=== PATIENT | male | born 1985 | race Caucasian/White ===

== ENCOUNTER 2017-01-28 08:40 | Emergency (ER) | payer SELFPAY ==
--- NOTE | 2017-01-28 09:30 | ER Document Report ---
ED Medical Screen (RME) - General Stated Complaint: BLURRED EYE VISION Notes: onset: saturday. eye trauma of right eye legally blind in left eye cloudy in right eye, light sensitive, headache. I have greeted and performed a rapid initial assessment of this patient. A comprehensive ED assessment and evaluation of the patient, analysis of test results and completion of the medical decision making process will be conducted by additional ED providers. TRAVEL OUTSIDE OF THE [place] IN LAST 30 DAYS: No - Related Data Allergies/Adverse Reactions: No Known Allergies Allergy (Unverified 06/20/16 09:01) Past Medical History Psychiatric Medical History: Reports: Hx Anxiety, Hx Bipolar Disorder, Hx Depression Past Surgical History: Reports: Hx Orthopedic Surgery Physical Exam - Vital signs Vitals: Temp Pulse Resp BP Pulse Ox 97.9 F 88 16 163/82 H 97 01/28/17 08:55 01/28/17 08:55 01/28/17 08:55 01/28/17 08:55 01/28/17 08:55 Course - Vital Signs Vital signs: Temp Pulse Resp BP Pulse Ox 97.9 F 88 16 163/82 H 97 01/28/17 08:55 01/28/17 08:55 01/28/17 08:55 01/28/17 08:55 01/28/17 08:55
[2017-01-28] MEDS ORDERED: TETRACAINE HCL 0.5% OPH SOLN 2 ML OD ONE (11:04)
--- NOTE | 2017-01-28 11:56 | ER Document Report ---
ED Eye Complaint - General Chief Complaint: Blurred Vision Stated Complaint: BLURRED EYE VISION Information source: Patient Notes: 31-year-old male who is legally blind in the left eye with baseline poor vision in his right eye presents today after 2 days ago getting hit by the end of a bungee cord strep while moving at his place of occupation. Patient states he has had some increased irritation and blurry vision to the right eye. He states his tetanus is up-to-date. Patient states he is supposed to be wearing glasses but since they are "very thick" he finds them cumbersome. He does not wear contacts. TRAVEL OUTSIDE OF THE [place] IN LAST 30 DAYS: No - HPI Onset: Other - See above Eye location: Right Injury: Yes Occurred at: Work Quality of pain: Burning Severity: Mild Pain Level: 1 Exposure: Other - See above Safety glasses worn: No Contact lenses worn: No Associated symptoms: Other - See above - Related Data Allergies/Adverse Reactions: No Known Allergies Allergy (Verified 01/28/17 09:29) Past Medical History - Social History Smoking Status: Current Every Day Smoker Chew tobacco use (# tins/day): No Frequency of alcohol use: Occasional Drug Abuse: None Family History: Reviewed & Not Pertinent Patient has suicidal ideation: No Patient has homicidal ideation: No Renal/ Medical History: Denies: Hx Peritoneal Dialysis Psychiatric Medical History: Reports: Hx Anxiety, Hx Bipolar Disorder, Hx Depression Past Surgical History: Reports: Hx Orthopedic Surgery Physical Exam - Vital signs Vitals: Temp Pulse Resp BP Pulse Ox 97.9 F 88 16 163/82 H 97 01/28/17 08:55 01/28/17 08:55 01/28/17 08:55 01/28/17 08:55 01/28/17 08:55 Interpretation: Normal Notes: Reviewed vital signs and nursing note as charted by RN. CONSTITUTIONAL: Alert and oriented and responds appropriately to questions. Well -appearing; well-nourished HEAD: Normocephalic; atraumatic EYES: Right sclera and conjunctiva are injected. No obvious lacerations present. Full extraocular range of motion. Left pupil is 2 mm and reactive. The right pupil is around 3-4 mm and sluggishly reactive and slightly irregular. It does not appear to be obvious loss of fullness to the globe. No flow seen uptake. No obvious foreign body present. ENT: Normal nose; no rhinorrhea; moist mucous membranes; pharynx without lesions noted NEURO: CN II through XII are intact. PSYCH: The patient's mood and manner are appropriate. Grooming and personal hygiene are appropriate. - HEENT Visual acuity- Right eye: 20/40-1 Visual acuity- Both eyes: 20/40-1 Corrective lenses worn: No - legally blind in Left Eye Course - Re-evaluation Re-evalutation: 01/28/17 12:13 Given the initial history and physical examination I will order a CT of the orbits to evaluate for possible globe rupture, although I do believe that this is unlikely at this time. Patient is having no pain to his eye, no proptosis, and has full extraocular range of motion with no obvious flow seen uptake. If the CT of the orbit does not show an obvious globe rupture, I will perform Chaparro- Pen pressure examination and then consult ophthalmology. 01/28/17 13:21 CT scan showed no fractures or globe rupture. Chaparro-Pen pressure was 19. I called and spoke directly to the pulmonary function technician Dr. Burch. He believes the patient most likely has a traumatic iritis. I am in agreement. He states he will be able to see the patient in one hour. Patient will be discharged directly to his office across the street. - Vital Signs Vital signs: Temp Pulse Resp BP Pulse Ox 97.9 F 88 17 163/82 H 97 01/28/17 08:55 01/28/17 08:55 01/28/17 10:41 01/28/17 08:55 01/28/17 08:55 Discharge - Discharge Clinical Impression: Right eye trauma Qualifiers: Encounter type: initial encounter Qualified Code(s): S05.91XA - Unspecified injury of right eye and orbit, initial encounter Condition: Good Disposition: HOME, SELF-CARE Additional Instructions: Please go directly to Dr. Burch office as we have discussed. Referrals: WARD BURCH MD [ACTIVE STAFF] - Follow up as needed
[2017-01-28 13:39] VITALS: BP 160/78
== END 2017-01-28 13:33 | disposition home or self-care (01) ==
LOC: ER 08:40
DX: S05.91XA Unspecified injury of right eye and orbit, initial encounter (principal); H53.8 Other visual disturbances; H54.8 Legal blindness, as defined in USA; F17.200 Nicotine dependence, unspecified, uncomplicated; W22.8XXA Striking against or struck by other objects, initial encounter; Y99.0 Civilian activity done for income or pay
CPT/HCPCS: 70480; 99284

== ENCOUNTER 2017-02-01 17:07 | Emergency (ER) | payer SELFPAY ==
--- NOTE | 2017-02-01 17:53 | ER Document Report ---
ED Medical Screen (RME) - General Stated Complaint: EYE PAIN Notes: Patient states he was sent over by a eye doctor for blurred vision and elevated intraocular pressure.. He had an eye injury to the right eye last Saturday. I have greeted and performed a rapid initial assessment of this patient. A comprehensive ED assessment and evaluation of the patient, analysis of test results and completion of the medical decision making process will be conducted by additional ED providers. TRAVEL OUTSIDE OF THE [place] IN LAST 30 DAYS: No - Related Data Allergies/Adverse Reactions: No Known Allergies Allergy (Verified 01/28/17 09:29) Past Medical History Renal/ Medical History: Denies: Hx Peritoneal Dialysis Psychiatric Medical History: Reports: Hx Anxiety, Hx Bipolar Disorder, Hx Depression Past Surgical History: Reports: Hx Orthopedic Surgery Physical Exam - Vital signs Vitals: Temp Pulse Resp BP Pulse Ox 98.0 F 72 16 147/100 H 97 02/01/17 17:11 02/01/17 17:11 02/01/17 17:11 02/01/17 17:11 02/01/17 17:11 - HEENT Notes: Right eye with mild redness surrounding the eye, conjunctiva mildly injected. Course - Vital Signs Vital signs: Temp Pulse Resp BP Pulse Ox 98.0 F 72 16 147/100 H 97 02/01/17 17:11 02/01/17 17:11 02/01/17 17:11 02/01/17 17:11 02/01/17 17:11
[2017-02-01] MEDS ORDERED: ACETAZOLAMIDE SODIUM INJ 500 MG VIAL IV ONE (17:57)
--- NOTE | 2017-02-01 18:24 | ER Document Report ---
ED Eye Complaint - General Chief Complaint: Eye Problem Stated Complaint: EYE PAIN Mode of Arrival: Ambulatory Information source: Patient Notes: This is a 31-year-old male sent to the emergency department by the furniture crater for increased intraocular pressure. The patient has baseline legal blindness in his left eye which he has had since he was a child. One week ago the patient suffered an injury to his right eye. He was working on a vehicle with a bungee when one end of the bungee released and hit him in the right eye. 3 days later he was still having difficulty seeing out of the right eye so he presented to the emergency department and was referred to the furniture [facility] and diagnosed with a traumatic iritis and treated with steroids. This morning, he states he felt a little better he could actually see some out of his right eye however as the day progressed this change and by the afternoon his vision was again not significantly blurry. He had a follow- up scheduled with Dr. Mahoney this afternoon, and it was noted that his intraocular pressure was in the 40s. The pressure was not significantly alleviated with drops, and so the [facility] referred the patient to the emergency department for a dose of IV Diamox, and the patient has scheduled follow-up with the furniture [facility] tomorrow morning. The patient has no other complaints at this time. TRAVEL OUTSIDE OF THE [place] IN LAST 30 DAYS: No - Related Data Allergies/Adverse Reactions: No Known Allergies Allergy (Verified 02/01/17 17:52) Past Medical History - Social History Smoking Status: Current Every Day Smoker Chew tobacco use (# tins/day): No Frequency of alcohol use: Occasional Drug Abuse: None Family History: Reviewed & Not Pertinent Patient has suicidal ideation: No Patient has homicidal ideation: No Renal/ Medical History: Denies: Hx Peritoneal Dialysis Psychiatric Medical History: Reports: Hx Anxiety, Hx Bipolar Disorder, Hx Depression Past Surgical History: Reports: Hx Orthopedic Surgery Physical Exam - Vital signs Vitals: Temp Pulse Resp BP Pulse Ox 98.0 F 72 16 147/100 H 97 02/01/17 17:11 02/01/17 17:11 02/01/17 17:11 02/01/17 17:11 02/01/17 17:11 - Notes Notes: PHYSICAL EXAMINATION: GENERAL: Well-appearing, well-nourished and in no acute distress. Wearing sunglasses. Very pleasant and conversant HEAD: Atraumatic, normocephalic. EYES: , extraocular movements intact, sclera anicteric, mild R conjunctival injection. Pupils minimally reactive bilaterally. ENT: nares patent, oropharynx clear without exudates. Moist mucous membranes. NECK: Normal range of motion, supple without lymphadenopathy LUNGS: Breath sounds clear to auscultation bilaterally and equal. No wheezes rales or rhonchi. HEART: Regular rate and rhythm without murmurs ABDOMEN: Soft, nontender, normoactive bowel sounds. No guarding, no rebound. EXTREMITIES: Normal range of motion, no pitting or edema. No cyanosis. NEUROLOGICAL: No gross focal motor or sensory deficits appreciated PSYCH: Normal mood, normal affect. SKIN: Warm, Dry, normal turgor, no rashes or lesions noted. Course - Re-evaluation Re-evalutation: 02/01/17 19:08 Patient received IV Diamox at 1850. Chaparro-Pen was used to measure IOP at 1900 and the result was 46. Will wait 45 minutes and recheck. 02/01/17 20:47 Intraocular pressure was remeasured with a Chaparro-Pen and hour and 20 minutes after the IV Acetazolamide. IOP is now 37. I discussed with Dr. Mahoney and the plan will be for pt to take 250mg po Diamox tonight, 250mg in the morning, and Dr. Mahoney will call him at [phone] to schedule appointment for repeat pressure measurement tomorrow. Patient has also been prescribed 3 drops to be used as directed as per Dr. Mahoney. Patient and family comfort with this plan. Questions were answered. 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 Glaucoma can be either acute or chronic. Acute glaucoma causes a sudden change of vision, eye pain, nausea and vomiting, and headache. Chronic glaucoma usually causes no symptoms, as it is a very gradual process. Either type of glaucoma can result in blindness if untreated. It's critical that you use any medications as prescribed. You must follow up with Dr Mahoney tomorrow as arranged. As directed by Dr Mahoney, use the eyedrops as prescribed. Take 250mg of oral Diamox tonight before bed, and another 250 mg of oral Diamox in the morning when you awaken. Dr. Mahoney will call you between [phone] in the morning to arrange time for re-exam. Return to the ER for worsening symptoms.
[2017-02-01] MEDS ORDERED: HYDROCODONE/ACETAMINOPHEN 7.5-325 MG TABLET PO ONE (20:21)
[2017-02-01 21:15] VITALS: BP 136/94
== END 2017-02-01 21:15 | disposition home or self-care (01) ==
LOC: ER 17:07
DX: H40.051 Ocular hypertension, right eye (principal); H54.42 Blindness, left eye, normal vision right eye; F17.200 Nicotine dependence, unspecified, uncomplicated
CPT/HCPCS: 99283; 96374; J1120